=== PATIENT | female | born 1945 | race Two or more races ===

== ENCOUNTER 2022-11-17 10:05 | Outpatient (CLI) | payer MEDICARE, OTHER ==
[2022-11-17] MEDS ORDERED: SILVER NITRATE APPLICATOR 1 EA BOX ONE (10:30)
[2022-11-17] MEDS ORDERED: UREA 10% -AHA 4% CREAM 57 GM TUBE ONE (10:31)
== END 2022-11-17 23:59 | disposition home or self-care (01) ==
LOC: WOU 10:05
PROVIDERS: ATTEND Podiatrist Foot & Ankle Surgery
DX: L60.2 Onychogryphosis (principal); M21.371 Foot drop, right foot; I69.351 Hemiplegia and hemiparesis following cerebral infarction affecting right dominant side; Z79.01 Long term (current) use of anticoagulants; M79.672 Pain in left foot; M79.671 Pain in right foot; M20.42 Other hammer toe(s) (acquired), left foot; M20.41 Other hammer toe(s) (acquired), right foot; Z79.899 Other long term (current) drug therapy
CPT/HCPCS: G0463

== ENCOUNTER 2022-12-15 10:57 | Outpatient (CLI) | payer MEDICARE, OTHER | END 2022-12-15 23:59 | disposition home or self-care (01) | LOC: WOU 10:57 | PROVIDERS: ATTEND Podiatrist Foot & Ankle Surgery | DX: M21.371 Foot drop, right foot (principal); L60.2 Onychogryphosis; I69.351 Hemiplegia and hemiparesis following cerebral infarction affecting right dominant side; M79.672 Pain in left foot; M79.671 Pain in right foot; Z79.01 Long term (current) use of anticoagulants | CPT/HCPCS: G0463 ==